=== PATIENT | female | born 1940 ===

== ENCOUNTER 2023-12-10 06:31 | Day surgery (SDC) | payer OTHER ==
[2023-12-02 13:02] LABS: HEMATOCRIT 38.7 % (36.0-45.00); HEMOGLOBIN 12.8 g/dL (12.0-15.00); MEAN CELL VOLUME 92.7 fL (80.00-100.00); MEAN CORPUSCULAR HEMOGLOBIN 30.7 pg (27.00-32.0); MEAN CORPUSCULAR HGB CONC 33.1 g/dl (32.0-36.0); PLATELET COUNT 184 K/uL (150-450); RED BLOOD COUNT 4.18 M/uL (4.00-6.00); RED CELL DISTRIBUTION WIDTH 13.7 % (11.5-14.5)
[2023-12-02 13:04] LABS: URINE APPEARANCE Clear; URINE BILIRRUBIN Negative (NEGATIVE); URINE BLOOD Negative; URINE COLOR Yellow; URINE GLUCOSE Negative (NEGATIVE); URINE LEUKOCYTE Small; URINE NITRATE Negative; URINE PROTEIN Negative (NEGATIVE); URINE UROBILINOGEN 0.2 E.U./dl
[2023-12-02 13:05] LABS: URINE BACTERIA 56.6 uL (0.0-1933); URINE EPITHELIAL CELLS 23.9 uL (0.0-38.8); URINE RBC 4.3 uL (0.0-20.8); URINE WBC 36.7 uL (0.0-23.2)
[2023-12-02 13:35] LABS: ALBUMIN 3.7 gm/dL (3.4-5.0); BILIRUBIN TOTAL 0.39 mg/dL (0.3-1.2); CALCIUM 9.4 mg/dL (8.5-10.1); CREATININE SERUM 0.78 mg/dL (0.55-1.02); GFR 70.71; GLOBULINA 4.3 G/DL (2.4-3.5); INR 1.04; PARTIAL THROMBOPLASTIN TIME 28.8 SECONDS (22.0-34.0); POTASSIUM 4.22 mEq/L (3.5-5.1); PROTHROMBIN TIME 10.9 SECONDS (9.0-11.5)
[~2023-12-10 06:31] MED LIST: CARVEDILOL ER40 MG; ENALAPRIL MALEAT5 MG; JANUVIA100 MG; LEVO-T50 MCG; LIPITOR40 M1
[2023-12-10] MEDS ORDERED: METRONIDAZOLE/SODIUM CHLORIDE 500 MG/100 ML PIGGYBACK IV ONE ×2 (07:45→09:45)
[2023-12-10] MEDS ORDERED: LIDOCAINE HCL 1%/Epi 20ML VIAL IJ ONE ×2 (08:37→09:45)
[2023-12-10] MEDS ORDERED: POVIDONE-IODINE 118 ML BOTT TOP ONE ×2 (08:37→09:45)
[2023-12-10] MEDS ORDERED: BUPIVACAINE HCL/PF 0.5% 30ML ML ONE (08:37)
[2023-12-10] MEDS ORDERED: DIBUCAINE 15 GM OINT..GM. TUBE ONE (08:38)
[2023-12-10] MEDS ORDERED: HEMOSTATIC MATRIX 1 KIT KIT TOP ONE ×2 (08:38→09:45)
[2023-12-10] MEDS ORDERED: BUPIVACAINE HCL 30 ML VIAL IJ ONE (09:45)
[2023-12-10] MEDS ORDERED: DIBUCAINE 15 GM OINT..GM. TUBE RECTAL ONE (09:45)
[2023-12-10] MEDS ORDERED: levoFLOXacin IN DEXTROSE 5 % 5 MG/ML PIGGYBAG IV ONE (10:00)
[2023-12-10] MEDS ORDERED: TRAM1TAB98 PO (12:29)
[2023-12-10] MEDS ORDERED: INTESTINEX680 M1 PO (12:29)
[2023-12-10] MEDS ORDERED: GABAPENTIN100 MG PO (12:29)
[2023-12-10 15:32] LABS: HEMATOCRIT 34.1 % (36.0-45.00); HEMOGLOBIN 11.3 g/dL (12.0-15.00); MEAN CELL VOLUME 92.3 fL (80.00-100.00); MEAN CORPUSCULAR HEMOGLOBIN 30.7 pg (27.00-32.0); MEAN CORPUSCULAR HGB CONC 33.3 g/dl (32.0-36.0); PLATELET COUNT 131 K/uL (150-450); RED CELL DISTRIBUTION WIDTH 13.2 % (11.5-14.5)
== END 2023-12-10 16:20 | disposition home or self-care (01) ==
LOC: CIR.AMB 06:31
PROVIDERS: ATTEND Surgery
DX: K64.2 Third degree hemorrhoids (principal); K64.8 Other hemorrhoids; Z88.0 Allergy status to penicillin; Z88.6 Allergy status to analgesic agent; Z20.822 Contact with and (suspected) exposure to COVID-19

== ENCOUNTER 2025-10-05 13:52 | Outpatient (CLI) | payer OTHER ==
[~2025-10-05 13:52] MED LIST changes: +GABAPENTIN100 MG PO; +INTESTINEX680 M1 PO; +TRAM1TAB98 PO
== END 2025-10-05 13:54 | disposition home or self-care (01) ==
LOC: RAD 13:52
PROVIDERS: ATTEND Internal Medicine
DX: J44.1 Chronic obstructive pulmonary disease with (acute) exacerbation (principal)